=== PATIENT | male | born 1975 | race Two or more races ===

== ENCOUNTER 2019-08-30 14:37 | Emergency (ER) | payer OTHER ==
[~2019-08-30] VITALS: Ht 170.2 cm; Wt 67.6 kg
--- NOTE | 2019-08-30 14:46 | NUR ---
Patient came to ED BIB [employer] for DERRICK jamison to Book awaiting to be seen
--- NOTE | 2019-08-30 15:03 | NUR ---
Patient ok to Booked per Dr. Fernandes DC to [employer] patient non distress vitals taken and filed
[2019-08-30 15:06] VITALS: BP 133/78
== END 2019-08-30 15:07 ==
LOC: ER 14:39
DX: Z02.89 Encounter for other administrative examinations (principal); Z72.89 Other problems related to lifestyle